=== PATIENT | female | born 1965 | race African-American/Black ===

== ENCOUNTER 2017-11-05 13:28 | Day surgery (SDC) | payer BC ==
[2017-10-31 14:38] VITALS: BMI 35.2
[~2017-11-05 13:28] MED LIST: BUPIVACAINE HCL/PF 0.5% (5MG/ML) 10 ML VIAL IJ ONE; ceFAZolin SODIUM 1 GM VIAL IVPB ONE
[2017-11-05] MEDS ORDERED: PROPOFOL 20 ML ONE ×2 (14:36)
[2017-11-05] MEDS ORDERED: ceFAZolin SODIUM 1 GM VIAL ONE (14:36)
[2017-11-05] MEDS ORDERED: LIDOCAINE HCL/PF 2% SDV 5ML VIAL ONE (14:36)
[2017-11-05] MEDS ORDERED: MIDAZOLAM HCL 2 MG/2 ML SINGLE DOSE VIAL ONE (14:36)
--- NOTE | 2017-11-05 14:37 | HP ---
Satellite [facility] - Chief Complaint Chief Complaint: right knee pain History of Present Illness: right knee medial meniscus tear History Source: Patient Limitations to Obtaining History: No Limitations - Past Medical History Allergies/Adverse Reactions: Allergies Allergy/AdvReac Type Severity Reaction Status Date / Time erythromycin base AdvReac Intermediate Nausea Verified 10/31/17 14:28 ...LMP Comment: 2015 - Current Medications Current Medications: Home Medications Medication Instructions Recorded Albuterol Sulfate Inhaler - 1 puff IH PRN PRN 10/31/17 [Ventolin Hfa Inhaler -] Fluticasone/Salmeterol [Advair 1 each IH BID 10/31/17 250-50 Diskus] Hydrochlorothiazide 25 mg PO DAILY 10/31/17 Lisinopril 5 mg PO DAILY 10/31/17 Pantoprazole Sodium [Protonix -] 40 mg PO DAILY 10/31/17 Simvastatin 20 mg PO HS 10/31/17 Satellite Physical Exam - Physical Examination Vital Signs: Vital Signs Period Temp Pulse Resp BP Sys/Mccracken Pulse Ox Last 24 Hr 98.4 F 92 18 109/70 98 General Appearance: Well Nourished ENT: Clear Lung: Clear to auscultation Heart: Regular rate & rhythm Breasts: Soft Abdomen: Soft Extremities: No edema Satellite Impression/Plan - Impression/Plan Impression: right knee pain, medial meniscus tear Operative Procedure: right knee arthroscopy Date to be Performed: 11/05/17
[2017-11-05] MEDS ORDERED: ceFAZolin SODIUM 1 GM VIAL IVPB ONE (14:45)
[2017-11-05] MEDS ORDERED: BUPIVACAINE HCL/PF 0.5% (5MG/ML) 10 ML VIAL IJ ONE (15:15)
--- NOTE | 2017-11-05 15:29 | OP ---
Operative Note - Note: Operative Date: 11/05/17 Pre-Operative Diagnosis: right knee pain, medial meniscus tear Operation: right knee arthroscopy, partial medial meniscectomy, debridement chondroplasty Post-Operative Diagnosis: Same as Pre-op Surgeon: Gonzalo Arboleda Anesthesiologist/MOUNTER SOUSAPHONES: Abbie Mcghee Anesthesia: General, Local Specimens Removed: shavings Estimated Blood Loss (mls): 0 Drains, Volume Out (mls): 0 Blood Volume Replaced (mls): 0 Fluid Volume Replaced (mls): 500 Operative Report Dictated: Yes
[2017-11-05] MEDS ORDERED: ONDANSETRON 4 MG/2 ML VIAL IVPUSH PRN (15:34)
[2017-11-05] MEDS ORDERED: oxyCODONE HCL 5 MG TABLET PO PRN ×2 (15:34)
[2017-11-05] MEDS ORDERED: LACTATED RINGERS SOLUTION 1,000 ML IV SCH (15:45)
--- NOTE | 2017-11-05 16:13 | OP ---
DATE OF OPERATION: 11/05/2017 PREOPERATIVE DIAGNOSES: Right knee pain, medial meniscus tear. POSTOPERATIVE DIAGNOSES: Medial meniscus tear and osteoarthritis. PROCEDURE: Right knee arthroscopy, partial medial meniscectomy, and debridement chondroplasty. SURGEON: Guzman Restrepo MD ASSISTANTS: None. ANESTHESIOLOGIST: Abbie Mcghee MD ANESTHESIA: LMA with 20 mL 0.50% Marcaine intra-articular injection. DRAINS: None. COMPLICATIONS: None. SPECIMENS: Arthroscopic shavings. BLOOD LOSS: None. BLOOD GIVEN: None. This patient is a 52-year-old female with preoperative diagnosis of right knee pain and a medial meniscus tear. After understanding the potential risks, complications, alternatives, and benefits of surgery versus nonsurgical treatment, patient elected to undergo this procedure. The patient was brought to the operating room, peripheral IV placed, IV sedation given. One gram of IV Ancef was given. LMA anesthesia was induced. Ample Webril was placed around the right thigh. A tourniquet was applied. It was placed into C-clamp leg shabazz with a Styrofoam ring. The right lower extremity was prepped and draped in sterile fashion, elevated, exsanguinated with an Esmarch bandage, and the tourniquet inflated to 275 mmHg. A superomedial outflow portal was established. A lateral portal was established. A medial portal was established under direct visualization using a spinal needle, and diagnostic arthroscopy was performed. Patient was seen to have significant grade 3 chondromalacia of the medial femoral condyle. This was debrided with a curved shaver and identified with the probe. Patient had a radial tear of the posterior horn of the medial meniscus which was debrided with the up-biter forceps and a curved shaver. Photographs were taken before and after. The patient's intercondylar notch and anterior cruciate ligament looked good. The lateral portal overall looked good. The lateral meniscus looked good. The lateral tibial plateau looked good. The lateral femoral condyle had a small area of chondromalacia. This was debrided with a shaver. Next, our attention was turned to the patellofemoral joint. Patient had a large area of significant chondromalacia and degenerative cartilage in the femoral trochlea. This was debrided with the curved shaver. The undersurface of the patella had small areas of chondromalacia. These were debrided as well. The area was copiously irrigated and washed out. All instrumentation removed. The arthroscopy portals were closed with 3-0 nylon suture. All the excess saline had been removed. Next, 20 mL of 0.50% Marcaine were then introduced in the joint. The area was then washed and dried, covered with Xeroform, 4 x 4 gauze, Webril, and Emeterio bandage. Tourniquet was taken down after total tourniquet time of 15 minutes. Patient was stable. She tolerated the procedure quite well. She was extubated and brought to the ambulatory recovery room in stable condition. GUZMAN RESTREPO M.D. [id number]
[2017-11-05 16:32] VITALS: TEMP 98.9
[2017-11-05 17:46] VITALS: BP 99/62; PULSE 95
--- NOTE | 2017-11-08 10:23 | PATH ---
Surgical Pathology Report Patient Name: DAYANARA SMITH [facility]. Rec. #: [id number] /Age/Gender: 1965 (Age: 52) / F Account: [id number] Location: [facility] SURGICAL Taken: 11/05/2017 Received: 11/06/2017 Reported: 11/08/2017 Physicians: Gonzalo Arboleda M.D. Specimen(s) Received RIGHT KNEE SHAVINGS Clinical History Meniscus tear right knee Final Diagnosis KNEE SHAVINGS, RIGHT, ARTHROSCOPY, PARTIAL MEDIAL MENISCECTOMY AND DEBRIDEMENT CHONDROPLASTY: FRAGMENTS OF CARTILAGE, DENSE FIBROCONNECTIVE TISSUE, ADIPOSE TISSUE, AND REACTIVE SYNOVIUM. Electronically Signed Shannon Conteh M.D. Gross Description Received in formalin, labeled "right knee shavings," is a 5.0 x 3.5 x 0.3 cm. aggregate of silveira-yellow soft tissue fragments. A customer contact representative portion is submitted in one cassette. [facility]/06/2017 [facility]
== END 2017-11-05 17:45 | disposition home or self-care (01) ==
LOC: JASU-SURG 13:28
PROVIDERS: ATTEND Orthopaedic Surgery
PROC: 0SBC4ZZ Excision of Right Knee Joint, Percutaneous Endoscopic Approach (ICD-10-PCS; principal; 2017-11-05 14:30)
DX: M23.221 Derangement of posterior horn of medial meniscus due to old tear or injury, right knee (principal); M17.11 Unilateral primary osteoarthritis, right knee
CPT/HCPCS: 88304-TC; 94760

== ENCOUNTER 2021-02-21 04:12 | Day surgery (SDC) | payer BC, OTHER ==
[2021-02-17 16:07] VITALS: BMI 36.8
[2021-02-21] MEDS ORDERED: ONDANSETRON 4 MG/2 ML VIAL IVPUSH PRN (10:01)
[2021-02-21] MEDS ORDERED: PROMETHAZINE HCL 25 MG/1 ML VIAL IVPB PRN (10:01)
[2021-02-21] MEDS ORDERED: oxyCODONE HCL 5 MG TABLET PO PRN ×2 (10:01)
[2021-02-21] MEDS ORDERED: LACTATED RINGERS SOLUTION 1,000 ML IV SCH (10:15)
[2021-02-21] MEDS ORDERED: LIDOCAINE HCL 1%, 10 MG/ML (20ML VIAL) ONE (11:08)
[2021-02-21] MEDS ORDERED: MIDAZOLAM HCL 2 MG/2 ML SINGLE DOSE VIAL ONE (12:02)
[2021-02-21] MEDS ORDERED: ceFAZolin SODIUM 1 GM VIAL IVPB ONE (12:29)
[2021-02-21] MEDS ORDERED: PROPOFOL 20 ML ONE ×2 (12:38→12:52)
[2021-02-21] MEDS ORDERED: LIDOCAINE HCL 1%, 10 MG/ML (20ML VIAL) NR ONE ×2 (12:38)
[2021-02-21] MEDS ORDERED: ACETAMINOPHEN 325 MG TABLET (FP) PO ONE (14:20)
[2021-02-21] MEDS ORDERED: ACETAMINOPHEN 325 MG TABLET (FP) ONE (14:21)
[2021-02-21 16:39] VITALS: BP 119/66; PULSE 73; TEMP 97.2
== END 2021-02-21 15:15 | disposition home or self-care (01) ==
LOC: JASU-SURG 04:12
PROVIDERS: ATTEND Surgery
PROC: 0H9T3ZX Drainage of Right Breast, Percutaneous Approach, Diagnostic (ICD-10-PCS; principal; 2021-02-21 11:00)
DX: D05.01 Lobular carcinoma in situ of right breast (principal)
CPT/HCPCS: 19281; 76098-TC-FY; 88307-TC; 88341-TC; 88342-TC; 94760